=== PATIENT | male | born 1970 | race Caucasian/White ===

== ENCOUNTER 2020-05-22 09:00 | Observation (INO) ==
[2020-05-22] MEDS ORDERED: Isovue-370 500 ML BOTTLE IVP ONE (10:10)
[2020-05-22 11:04] LABS: Basophils % 0.1 %; Immature Granulocytes % 0.7 % (0-4); Red Cell Distribution Width 13.6 % (11.5-14.5)
[2020-05-22 11:06] LABS: Hematocrit 43.5 % (37.5-50.1); Lymphocytes # 1.9 K/mcL (0.6-4.6); Lymphocytes % 6.3 %; Mean Corpuscular HGB Conc 32.2 g/dL (31.6-35.5); Mean Corpuscular Volume 90.1 fL (83.0-100.0); Mean Platelet Volume 9.5 fL (9.4-12.4); Monocytes # 1.4 K/mcL (0.0-1.3); Monocytes % 4.5 %; Neutrophils # 26.6 K/mcL (1.6-8.9); Platelet Count 534 K/mcL (140-400); Red Blood Count 4.83 M/mcL (4.19-5.50); Segmented Neutrophils % 88.4 %
[2020-05-22 11:09] LABS: Prothrombin Time 11.4 Seconds (9.4-12.1)
[2020-05-22 11:12] LABS: Activated Partial Thrombo Time 26.3 Seconds (26.0-36.0)
[2020-05-22 11:19] LABS: White Blood Count 30.1 K/mcL (4.3-11.1)
[2020-05-22 11:29] LABS: BUN/Creatinine Ratio 20 (6-26); Blood Urea Nitrogen 18 mg/dL (6-20); Calcium 9.8 mg/dL (8.6-10.3); Carbon Dioxide 25 mEq/L (23-29); Chloride 101 mEq/L (98-107); Glucose 110 mg/dL (70-105); Lipase 343 Units/L (11-82); Magnesium 2.1 mg/dL (1.6-2.6); Osmolality,Calculated 287 (280-300); Potassium 3.6 mEq/L (3.5-5.1); Sodium 137 mEq/L (136-145); Troponin I < 0.03 ng/mL (< 0.04); eGFR For African Americans > 60 (> 60); eGFR For Non-African Americans > 60 (> 60)
[2020-05-22 11:59] LABS: Anisocytosis 1+ (Not Present); Platelet Estimate Increased (Normal)
[2020-05-22 12:34] LABS: Alanine Aminotransferase 47 Units/L (7-52); Albumin 4.5 g/dL (3.5-5.7); Albumin/Globulin Ratio 1.3 (1.1-2.2); Alkaline Phosphatase 261 Units/L (34-104); Aspartate Amino Transferase 26 Units/L (13-39); Bilirubin,Direct 0.1 mg/dL (0.0-0.2); Bilirubin,Indirect 0.4 mg/dL (0.0-1.0); Bilirubin,Total 0.5 mg/dL (0.3-1.0); Globulin 3.4 g/dL (2.4-3.5); Total Protein 7.9 g/dL (6.4-8.9)
[2020-05-22] MEDS ORDERED: cefTRIAXone 1,000 MG in Water for inj. (sterile) 10 ML IVP ONE (12:35)
[2020-05-22] MEDS ORDERED: Pantoprazole 40 MG VIAL IVP ONE (12:35)
[2020-05-22] MEDS ORDERED: *HR* HYDROmorphone (PF) 1 MG/ML SYRINGE IVP ONE (12:41)
[2020-05-22] MEDS ORDERED: 0.9 % Sodium Chloride 1,000 ML IVC ONE ×2 (12:41→16:06)
[2020-05-22] MEDS ORDERED: Naloxone 0.4 MG/ML INJ IVP PRN (16:01)
[2020-05-22] MEDS ORDERED: Ondansetron 4 MG/2 ML VIAL IVP PRN (16:01)
[2020-05-22] MEDS ORDERED: MOM Conc 10 ML UD.LIQ PO PRN (16:01)
[2020-05-22] MEDS ORDERED: 0.9 % Sodium Chloride 1,000 ML IVC SCH (16:15)
[2020-05-22 16:17] LABS: Adenovirus F 40/41 PCR Not detected (Not detect); Astrovirus PCR Not detected (Not detect); C.difficile Toxin A/B Gene PCR Not detected (Not detect); Campylobacter by PCR Not detected (Not detect); Cryptosporidium by PCR Not detected (Not detect); Cyclospora cayetanensis PCR Not detected (Not detect); E. coli O157 by PCR Not detected (Not detect); Entamoeba histolytica PCR Not detected (Not detect); Enteroaggregative E.coli(EAEC) Not detected (Not detect); Enteropathogenic E.coli(EPEC) Not detected (Not detect); Enterotoxigenic E.coli (ETEC) Not detected (Not detect); Giardia lamblia PCR Not detected (Not detect); Norovirus GI/GII PCR Not detected (Not detect); Plesiomonas shigelloides PCR Not detected (Not detect); Rotavirus A PCR Not detected (Not detect); Salmonella PCR Not detected (Not detect); Sapovirus PCR Not detected (Not detect); Shig/EnteroinvasiveE coli EIEC Not detected (Not detect); Shigalike tox-prod E coli STEC Not detected (Not detect); Vibrio PCR Not detected (Not detect); Vibrio cholerae PCR Not detected (Not detect); Yersinia enterocolitica PCR Not detected (Not detect)
[2020-05-22 16:58] LABS: Bilirubin,Urine Negative (Negative); Blood,Urine Negative (Negative); Clarity,Urine Clear (Clear); Color,Urine Colorless (Yellow); Glucose,Urine (UA) Normal (Normal); Ketones,Urine Negative (Negative); Leukocyte Esterase,Urine Negative (Negative); Nitrite,Urine Negative (Negative); PH,Urine 6.5 pH Units (5.0-8.0); Protein,Urine Trace mg/dL (Neg-Trace); Specific Gravity,Urine > 1.030 (1.010-1.025); Urobilinogen,Urine Normal (Normal)
[2020-05-22] MEDS: Pantoprazole 40 MG VIAL IVP SCH (18:18)
[2020-05-22] MEDS: Piperacillin/Tazobactam 3.375 GM in 0.9 % Sodium Chloride Mini Bag 100 ML IVPB SCH (18:18)
[2020-05-22 18:20] LABS: C-Reactive Protein < 5 mg/L (Less than 10)
[2020-05-22] MEDS: *HR* OxyCODONE/APAP 5/325 TABLET PO PRN (22:45)
[2020-05-22] MEDS: lisinopriL 10 MG TABLET PO SCH (22:46)
[2020-05-22] MEDS: DilTIAZem SR (12hr) 60 MG CAP.ER.12H PO SCH (22:46)
[2020-05-23 00:53] LABS: Basophils % 0.2 %; Eosinophils # 0.1 K/mcL (0.0-0.6); Eosinophils % 0.5 %; Hematocrit 33.3 % (37.5-50.1); Hemoglobin 10.8 g/dL (12.9-16.9); Immature Granulocytes % 0.4 % (0-4); Lymphocytes # 4.4 K/mcL (0.6-4.6); Lymphocytes % 19.8 %; Mean Corpuscular HGB Conc 32.4 g/dL (31.6-35.5); Mean Corpuscular Hemoglobin 29.9 pg (28.0-33.3); Mean Corpuscular Volume 92.2 fL (83.0-100.0); Mean Platelet Volume 9.7 fL (9.4-12.4); Monocytes # 1.4 K/mcL (0.0-1.3); Monocytes % 6.4 %; Platelet Count 381 K/mcL (140-400); Red Blood Count 3.61 M/mcL (4.19-5.50); Red Cell Distribution Width 13.6 % (11.5-14.5); Segmented Neutrophils % 72.7 %
[2020-05-23 01:07] LABS: Alanine Aminotransferase 30 Units/L (7-52); Albumin 3.3 g/dL (3.5-5.7); Albumin/Globulin Ratio 1.4 (1.1-2.2); Alkaline Phosphatase 180 Units/L (34-104); Aspartate Amino Transferase 16 Units/L (13-39); BUN/Creatinine Ratio 19 (6-26); Bilirubin,Total 0.4 mg/dL (0.3-1.0); Blood Urea Nitrogen 16 mg/dL (6-20); Calcium 8.2 mg/dL (8.6-10.3); Carbon Dioxide 23 mEq/L (23-29); Chloride 107 mEq/L (98-107); Globulin 2.3 g/dL (2.4-3.5); Glucose 115 mg/dL (70-105); Osmolality,Calculated 288 (280-300); Potassium 3.4 mEq/L (3.5-5.1); Sodium 138 mEq/L (136-145); Total Protein 5.6 g/dL (6.4-8.9); eGFR For African Americans > 60 (> 60); eGFR For Non-African Americans > 60 (> 60)
[2020-05-23] MEDS: Piperacillin/Tazobactam 3.375 GM in 0.9 % Sodium Chloride Mini Bag 100 ML IVPB SCH ×2 (04:27→09:31)
[2020-05-23] MEDS: Pantoprazole 40 MG VIAL IVP SCH (04:27)
[2020-05-23] MEDS ORDERED: PARoxetine 20 MG TABLET PO SCH (09:00)
[2020-05-23] MEDS: *HR* OxyCODONE/APAP 5/325 TABLET PO PRN (09:30)
[2020-05-23] MEDS: lisinopriL 10 MG TABLET PO SCH (09:30)
[2020-05-23] MEDS: DilTIAZem SR (12hr) 60 MG CAP.ER.12H PO SCH (09:30)
[2020-05-23 12:28] VITALS: BP 129/78
== END 2020-05-23 14:39 | disposition home or self-care (01) ==
LOC: 3ANU 09:00 → EMEROOARM 09:00 → SUATTDRO 15:40 → 3ANU 17:24
PROVIDERS: ADMIT Family Medicine; ATTEND Family Medicine

== ENCOUNTER 2020-05-29 11:30 | Observation (INO) ==
[2020-05-29] MEDS ORDERED: 0.9 % Sodium Chloride 1,000 ML IVC SCH (12:45)
[2020-05-29] MEDS ORDERED: Lidocaine -MPF 2% 2 ML VIAL ONE (13:02)
[2020-05-29] MEDS ORDERED: *HR* Propofol 200 MG/20 ML VIAL IVP ONE (13:31)
[2020-05-29] MEDS ORDERED: NON-FORMULARY MEDICATION 1 EACH EACH (Hydroxyzine Hcl [Hydroxyzine Hcl] 25 MG) PO PRN (15:02)
[2020-05-29] MEDS ORDERED: Albuterol 2.5 MG/3 ML NEBULIZER IH PRN ×2 (15:02→15:11)
[2020-05-29] MEDS ORDERED: lisinopriL 10 MG TABLET PO ONE ×2 (15:03)
[2020-05-29] MEDS ORDERED: Naloxone 0.4 MG/ML INJ IVP PRN (15:04)
[2020-05-29] MEDS ORDERED: Ondansetron 4 MG/2 ML VIAL IVP PRN (15:04)
[2020-05-29] MEDS: Pantoprazole 40 MG in 0.9 % Sodium Chloride Mini Bag 100 ML IVC SCH (15:25)
[2020-05-29] MEDS ORDERED: Acetaminophen IV 1,000 MG/100 ML BAG IVPB ONE (15:34)
[2020-05-29 16:12] LABS: Basophils % 0.2 %; Eosinophils # 0.1 K/mcL (0.0-0.6); Eosinophils % 0.5 %; Hematocrit 38.4 % (37.5-50.1); Immature Granulocytes % 0.5 % (0-4); Lymphocytes # 3.2 K/mcL (0.6-4.6); Lymphocytes % 15.6 %; Mean Corpuscular HGB Conc 33.3 g/dL (31.6-35.5); Mean Corpuscular Hemoglobin 29.4 pg (28.0-33.3); Mean Corpuscular Volume 88.3 fL (83.0-100.0); Mean Platelet Volume 9.7 fL (9.4-12.4); Monocytes # 1.5 K/mcL (0.0-1.3); Monocytes % 7.6 %; Neutrophils # 15.3 K/mcL (1.6-8.9); Platelet Count 620 K/mcL (140-400); Red Blood Count 4.35 M/mcL (4.19-5.50); Red Cell Distribution Width 13.2 % (11.5-14.5); Segmented Neutrophils % 75.6 %; White Blood Count 20.3 K/mcL (4.3-11.1)
[2020-05-29 16:15] LABS: Hemoglobin 12.8 g/dL (12.9-16.9)
[2020-05-29 16:16] LABS: INR 1.1; Prothrombin Time 12.9 Seconds (9.4-12.1)
[2020-05-29 16:30] LABS: BUN/Creatinine Ratio 14 (6-26); Blood Urea Nitrogen 15 mg/dL (6-20); Calcium 9.1 mg/dL (8.6-10.3); Carbon Dioxide 33 mEq/L (23-29); Chloride 96 mEq/L (98-107); Glucose 100 mg/dL (70-105); Magnesium 2.1 mg/dL (1.6-2.6); Osmolality,Calculated 291 (280-300); Potassium 3.1 mEq/L (3.5-5.1); Sodium 140 mEq/L (136-145); eGFR For African Americans > 60 (> 60); eGFR For Non-African Americans > 60 (> 60)
[2020-05-29] MEDS ORDERED: Potassium Chloride 40 MEQ, Lidocaine 1% 2 ML in 0.9 % Sodium Chloride 500 ML IVPB ONE (17:48)
[2020-05-29] MEDS ORDERED: *HR* Promethazine 25 MG/ML VIAL IM ONE (18:55)
[2020-05-29] MEDS: Nicotine 14 MG PATCH.TD24 TD SCH (19:41)
[2020-05-29] MEDS ORDERED: DILTIAZEM HCL 120 MG PO SCH (21:00)
[2020-05-29] MEDS ORDERED: *HR* OxyCODONE Immed Rel 5 MG TABLET PO ONE (22:18)
[2020-05-30] MEDS: Pantoprazole 40 MG in 0.9 % Sodium Chloride Mini Bag 100 ML IVC SCH ×4 (02:05→17:57)
[2020-05-30] MEDS: Acetaminophen 325 MG TABLET PO PRN ×2 (02:07→08:25)
[2020-05-30 05:37] LABS: INR 1.1; Prothrombin Time 12.6 Seconds (9.4-12.1)
[2020-05-30 07:56] LABS: Basophils % 0.2 %; Eosinophils # 0.2 K/mcL (0.0-0.6); Eosinophils % 0.8 %; Hematocrit 35.3 % (37.5-50.1); Hemoglobin 11.8 g/dL (12.9-16.9); Immature Granulocytes % 0.5 % (0-4); Lymphocytes # 3.7 K/mcL (0.6-4.6); Lymphocytes % 19.4 %; Mean Corpuscular HGB Conc 33.4 g/dL (31.6-35.5); Mean Corpuscular Hemoglobin 29.6 pg (28.0-33.3); Mean Corpuscular Volume 88.5 fL (83.0-100.0); Mean Platelet Volume 9.3 fL (9.4-12.4); Monocytes # 1.7 K/mcL (0.0-1.3); Monocytes % 9.1 %; Neutrophils # 13.2 K/mcL (1.6-8.9); Platelet Count 571 K/mcL (140-400); Red Blood Count 3.99 M/mcL (4.19-5.50); Red Cell Distribution Width 13.2 % (11.5-14.5); White Blood Count 18.8 K/mcL (4.3-11.1)
[2020-05-30 08:10] LABS: Calcium 8.9 mg/dL (8.6-10.3); Magnesium 2.1 mg/dL (1.6-2.6); Phosphorous 4.1 mg/dL (2.7-4.5); Potassium 2.9 mEq/L (3.5-5.1)
[2020-05-30] MEDS: PARoxetine 20 MG TABLET PO SCH (08:26)
[2020-05-30] MEDS: 0.9 % Sodium Chloride 1,000 ML IVC SCH ×2 (08:26→20:55)
[2020-05-30] MEDS ORDERED: lisinopriL 10 MG TABLET PO SCH ×2 (09:00)
[2020-05-30] MEDS ORDERED: PARoxetine 20 MG TABLET PO SCH (09:00)
[2020-05-30] MEDS ORDERED: Potassium Chloride 40 MEQ, Lidocaine 1% 2 ML in 0.9 % Sodium Chloride 500 ML IVPB ONE (09:02)
[2020-05-30] MEDS ORDERED: Acetaminophen 325 MG TABLET PO PRN (10:42)
[2020-05-30] MEDS: Nicotine 14 MG PATCH.TD24 TD SCH (11:38)
[2020-05-30] MEDS ORDERED: E-Z-PAQUE (BARIUM SULF) SUSP 1 BOTTLE PO ONE (12:12)
[2020-05-30] MEDS ORDERED: Simethicone/Sodium Bic/Citr Ac 1 EACH GRAN.EF.PK PO ONE (12:12)
[2020-05-30] MEDS ORDERED: E-Z-HD (BARIUM SULF) SUSPENSION PO ONE (12:12)
[2020-05-30 15:34] LABS: Bilirubin,Urine Negative (Negative); Blood,Urine Negative (Negative); Clarity,Urine Clear (Clear); Color,Urine Light-Yellow (Yellow); Glucose,Urine (UA) Normal (Normal); Ketones,Urine Negative (Negative); Leukocyte Esterase,Urine Negative (Negative); Nitrite,Urine Negative (Negative); Protein,Urine Trace mg/dL (Neg-Trace); Urobilinogen,Urine Normal (Normal)
[2020-05-30 16:06] LABS: Hematocrit 32.2 % (37.5-50.1); Hemoglobin 10.6 g/dL (12.9-16.9)
[2020-05-30] MEDS: MetroNIDAZOLE 500 MG/100 ML 500 MG/100 ML BAG IVPB SCH ×2 (16:31→23:49)
[2020-05-30] MEDS ORDERED: Potassium Chloride Elixir 20 MEQ/15 ML UDC PO ONE (17:25)
[2020-05-30] MEDS: Pantoprazole 40 MG VIAL IVP SCH (17:48)
[2020-05-30 21:43] LABS: Hematocrit 28.9 % (37.5-50.1); Hemoglobin 9.4 g/dL (12.9-16.9)
[2020-05-31] MEDS ORDERED: Potassium Chloride 40 MEQ, Lidocaine 1% 2 ML in 0.9 % Sodium Chloride 500 ML IVPB ONE (02:30)
[2020-05-31 06:13] LABS: Basophils # 0.1 K/mcL (0.0-0.2); Basophils % 0.3 %; Eosinophils # 0.3 K/mcL (0.0-0.6); Eosinophils % 1.9 %; Hemoglobin 10.1 g/dL (12.9-16.9); Immature Granulocytes % 0.5 % (0-4); Lymphocytes # 4.4 K/mcL (0.6-4.6); Lymphocytes % 29.6 %; Mean Corpuscular HGB Conc 32.6 g/dL (31.6-35.5); Mean Corpuscular Hemoglobin 30.1 pg (28.0-33.3); Mean Corpuscular Volume 92.5 fL (83.0-100.0); Mean Platelet Volume 9.7 fL (9.4-12.4); Monocytes # 1.2 K/mcL (0.0-1.3); Monocytes % 8.2 %; Neutrophils # 8.9 K/mcL (1.6-8.9); Platelet Count 485 K/mcL (140-400); Red Blood Count 3.35 M/mcL (4.19-5.50); Red Cell Distribution Width 13.4 % (11.5-14.5); Segmented Neutrophils % 59.5 %
[2020-05-31] MEDS: Pantoprazole 40 MG VIAL IVP SCH ×2 (06:22→18:25)
[2020-05-31 06:25] LABS: Calcium 8.3 mg/dL (8.6-10.3); Magnesium 1.9 mg/dL (1.6-2.6); Phosphorous 2.4 mg/dL (2.7-4.5); Potassium 3.2 mEq/L (3.5-5.1)
[2020-05-31] MEDS ORDERED: Potassium Phosphate 44 MEQ in 0.9 % Sodium Chloride 250 ML IVPB ONE (07:13)
[2020-05-31] MEDS: PARoxetine 20 MG TABLET PO SCH (08:05)
[2020-05-31] MEDS: MetroNIDAZOLE 500 MG/100 ML 500 MG/100 ML BAG IVPB SCH ×3 (08:06→23:27)
[2020-05-31] MEDS: Nicotine 14 MG PATCH.TD24 TD SCH (12:29)
[2020-05-31] MEDS: 0.9 % Sodium Chloride 1,000 ML IVC SCH (13:01)
[2020-06-01] MEDS: 0.9 % Sodium Chloride 1,000 ML IVC SCH (03:00)
[2020-06-01 03:23] LABS: Basophils # 0.1 K/mcL (0.0-0.2); Basophils % 0.3 %; Eosinophils # 0.4 K/mcL (0.0-0.6); Eosinophils % 2.9 %; Hematocrit 30.3 % (37.5-50.1); Hemoglobin 9.7 g/dL (12.9-16.9); Immature Granulocytes % 0.3 % (0-4); Lymphocytes # 3.9 K/mcL (0.6-4.6); Lymphocytes % 25.9 %; Mean Corpuscular Hemoglobin 29.2 pg (28.0-33.3); Mean Corpuscular Volume 91.3 fL (83.0-100.0); Mean Platelet Volume 9.7 fL (9.4-12.4); Monocytes # 1.4 K/mcL (0.0-1.3); Monocytes % 9.2 %; Neutrophils # 9.2 K/mcL (1.6-8.9); Platelet Count 466 K/mcL (140-400); Red Blood Count 3.32 M/mcL (4.19-5.50); Red Cell Distribution Width 13.2 % (11.5-14.5); Segmented Neutrophils % 61.4 %; White Blood Count 15.1 K/mcL (4.3-11.1)
[2020-06-01 03:44] LABS: BUN/Creatinine Ratio 8 (6-26); Blood Urea Nitrogen 10 mg/dL (6-20); Calcium 8.4 mg/dL (8.6-10.3); Carbon Dioxide 26 mEq/L (23-29); Chloride 107 mEq/L (98-107); Glucose 96 mg/dL (70-105); Osmolality,Calculated 289 (280-300); Potassium 3.5 mEq/L (3.5-5.1); Sodium 140 mEq/L (136-145); eGFR For African Americans > 60 (> 60); eGFR For Non-African Americans > 60 (> 60)
[2020-06-01] MEDS: Pantoprazole 40 MG VIAL IVP SCH ×2 (05:47→17:12)
[2020-06-01] MEDS: Nicotine 14 MG PATCH.TD24 TD SCH (07:50)
[2020-06-01] MEDS: PARoxetine 20 MG TABLET PO SCH (07:50)
[2020-06-01] MEDS: MetroNIDAZOLE 500 MG/100 ML 500 MG/100 ML BAG IVPB SCH ×3 (07:50→20:00)
[2020-06-01 15:05] LABS: Hematocrit 32.3 % (37.5-50.1); Hemoglobin 10.5 g/dL (12.9-16.9)
[2020-06-02] MEDS: Pantoprazole 40 MG VIAL IVP SCH (06:24)
[2020-06-02 06:46] LABS: Basophils % 0.2 %; Eosinophils # 0.4 K/mcL (0.0-0.6); Eosinophils % 2.2 %; Hematocrit 33.4 % (37.5-50.1); Hemoglobin 10.9 g/dL (12.9-16.9); Immature Granulocytes % 0.4 % (0-4); Lymphocytes # 3.2 K/mcL (0.6-4.6); Mean Corpuscular HGB Conc 32.6 g/dL (31.6-35.5); Mean Corpuscular Hemoglobin 30.1 pg (28.0-33.3); Mean Corpuscular Volume 92.3 fL (83.0-100.0); Mean Platelet Volume 9.9 fL (9.4-12.4); Monocytes # 1.4 K/mcL (0.0-1.3); Monocytes % 8.3 %; Neutrophils # 11.6 K/mcL (1.6-8.9); Platelet Count 528 K/mcL (140-400); Red Blood Count 3.62 M/mcL (4.19-5.50); Red Cell Distribution Width 13.2 % (11.5-14.5); Segmented Neutrophils % 69.9 %; White Blood Count 16.6 K/mcL (4.3-11.1)
[2020-06-02 07:10] LABS: BUN/Creatinine Ratio 6 (6-26); Blood Urea Nitrogen 7 mg/dL (6-20); Calcium 8.9 mg/dL (8.6-10.3); Carbon Dioxide 27 mEq/L (23-29); Chloride 103 mEq/L (98-107); Glucose 99 mg/dL (70-105); Osmolality,Calculated 286 (280-300); Potassium 3.5 mEq/L (3.5-5.1); Sodium 139 mEq/L (136-145); eGFR For African Americans > 60 (> 60); eGFR For Non-African Americans > 60 (> 60)
[2020-06-02] MEDS: PARoxetine 20 MG TABLET PO SCH (08:47)
[2020-06-02] MEDS: Nicotine 14 MG PATCH.TD24 TD SCH (08:47)
[2020-06-02] MEDS: MetroNIDAZOLE 500 MG/100 ML 500 MG/100 ML BAG IVPB SCH (08:51)
[2020-06-02 11:51] VITALS: BP 148/90
== END 2020-06-02 16:02 | disposition home or self-care (01) ==
LOC: SUATTDRO → 2ANU 11:30 → ENDPAV 11:30 → 2ANU 14:20 → ENDPAV 15:04 → 2ANU 15:11
PROVIDERS: ADMIT Internal Medicine; ATTEND Internal Medicine